=== PATIENT | male | born 1975 | race Two or more races ===

== ENCOUNTER 2021-05-03 11:37 | Emergency (ER) | payer MEDICAID ==
[~2021-05-03] VITALS: Ht 185.4 cm; Wt 86.2 kg
[2021-05-03 12:29] LABS: Urine Bacteria NONE SEEN /hpf (None Seen); Urine Blood Negative /uL (Negative); Urine Mucus FEW (None Seen); Urine Specific Gravity 1.027 (1.001-1.035); Urine WBC 1 /hpf (0 - 3)
[2021-05-03] MEDS ORDERED: cefTRIAXone SODIUM 250 MG VL IM ONE (13:00)
[2021-05-03] MEDS ORDERED: AZITHROMYCIN 250 MG TAB PO ONE (13:00)
[2021-05-03 13:40] VITALS: BP 117/78
== END 2021-05-03 13:46 | disposition home or self-care (01) ==
LOC: ER 11:37
DX: R30.0 Dysuria (principal); F17.210 Nicotine dependence, cigarettes, uncomplicated; F12.10 Cannabis abuse, uncomplicated; F15.10 Other stimulant abuse, uncomplicated; Z20.2 Contact with and (suspected) exposure to infections with a predominantly sexual mode of transmission
CPT/HCPCS: 81001; 96372; 99283; J0696